=== PATIENT | male | born 1965 | race American Indian/Alaskan Native ===

== ENCOUNTER 2016-08-21 15:17 | Emergency (ER) | payer BC ==
[2016-08-21 15:40] VITALS: BMI 41.3
--- NOTE | 2016-08-21 15:59 | ED PDOC ---
Arrival/HPI - General Chief Complaint: Male Genitourinary Time Seen by Provider: 08/21/16 15:40 Historian: Patient - History of Present Illness Narrative History of Present Illness (Text): 08/21/16 15:57 50 y/o male, pmh including htn/hyperlipidemia/gout, nkda, c/o decrease urinary stream with sensation of unable to empty the bladderx 1 day. Pt. stated that he woke up this morning with decrease urinary stream and been dripping, no pain , no flank pain, no abdominal or pelvic pain, feels unable to empty the bladder completely, no fever or chills, no testicular pain, no hematuria, no night sweat , no other medical or psychological complaints. Past Medical History - Provider Review Nursing Documentation Reviewed: Yes - Infectious Disease Hx of Infectious Diseases: None - Cardiac Hx Cardiac Disorders: Yes Hx Hypertension: Yes - Pulmonary Hx Respiratory Disorders: No - Neurological Hx Neurological Disorder: No - HEENT Hx HEENT Disorder: No - Renal Hx Renal Disorder: Yes Hx Kidney Stones: Yes - Endocrine/Metabolic Hx Endocrine Disorders: Yes Other/Comment: Prediabetic. - Hematological/Oncological Hx Blood Disorders: No - Integumentary Hx Dermatological Disorder: No - Musculoskeletal/Rheumatological Hx Musculoskeletal Disorders: Yes Hx Gout: Yes - Gastrointestinal Hx Gastrointestinal Disorders: No - Genitourinary/Gynecological Hx Genitourinary Disorders: No - Psychiatric Hx Psychophysiologic Disorder: No Hx Substance Use: No - Anesthesia Hx Anesthesia: Yes Hx Anesthesia Reactions: No Family/Social History - Physician Review Nursing Documentation Reviewed: Yes Family/Social History: Unknown Family HX Smoking Status: Current Some Days Smoker Hx Alcohol Use: Yes Frequency of alcohol use: Socially Hx Substance Use: No Allergies/Home Meds Allergies/Adverse Reactions: Allergies No Known Allergies Allergy (Verified 08/21/16 15:40) Home Medications: Home Meds Medication Instructions Recorded Confirmed Febuxostat [Uloric] 80 mg PO DAILY 08/21/16 08/21/16 Valsartan [Diovan] 40 mg PO DAILY 08/21/16 08/21/16 Review of Systems - Review of Systems Constitutional: absent: Fatigue, Fevers Eyes: absent: Vision Changes ENT: absent: Hearing Changes Respiratory: absent: SOB, Cough Cardiovascular: absent: Chest Pain Gastrointestinal: absent: Abdominal Pain, Nausea, Vomiting Genitourinary Male: Frequency. absent: Dysuria, Hematuria, Urinary Output Changes Musculoskeletal: absent: Arthralgias, Back Pain, Myalgias Psychiatric: absent: Anxiety, Depression, Suicidal Ideation Physical Exam Vital Signs Reviewed: Yes Vital Signs Temp Pulse Resp BP Pulse Ox 08/21/16 15:44 98.3 F 80 19 142/89 96 Temperature: Afebrile Blood Pressure: Normal Pulse: Regular Respiratory Rate: Normal Appearance: Positive for: Well-Appearing, Non-Toxic, Comfortable Pain Distress: None Mental Status: Positive for: Alert and Oriented X 3 - Systems Exam Head: Present: Atraumatic, Normocephalic Pupils: Present: PERRL Extroacular Muscles: Present: EOMI Conjunctiva: Present: Normal Mouth: Present: Moist Mucous Membranes Neck: Present: Normal Range of Motion Respiratory/Chest: Present: Clear to Auscultation, Good Air Exchange. No: Respiratory Distress, Accessory Muscle Use Cardiovascular: Present: Regular Rate and Rhythm, Normal S1, S2. No: Murmurs Abdomen: Present: Distention (mild suprapubic distension), Normal Bowel Sounds. No: Tenderness, Peritoneal Signs Genitourinary Male: Present: Normal External Genitalia, Circumcised Penis. No: Lesions, Penile Discharge, Testicle Tenderness, Penile Swelling, Masses, Erythema, Hernias, Testicle Swelling Back: Present: Normal Inspection Upper Extremity: Present: Normal Inspection. No: Cyanosis, Edema Lower Extremity: Present: Normal Inspection. No: Edema Neurological: Present: GCS=15, Speech Normal, Motor Func Grossly Intact, Gait Normal, Memory Normal Skin: Present: Warm, Dry, Normal Color. No: Rashes Psychiatric: Present: Alert, Oriented x 3, Normal Insight, Normal Concentration Medical Decision Making ED Course and Treatment: 08/21/16 15:56 Differential: Renal injury vs. Cystitis vs. Urinary retention vs. BPH -labs/ua -bladder scanner -observe and reassess 08/21/16 17:37 -Bladder scanner show: 300cc avoid his voided, cabrera catheter ordered, flomax 0.4mg po ordered. -Labs show no acute findings, creatine within normal limit -UA show mild hematuria, no UTI -Cabrera catheter drained out approx. 500cc with distension suprapubic resolved, cabrera inserted with mild obstruction near the prostate region -Pt. feeling much better. -Pt. stated that he has urologist tomorrow to follow up with him. Hematuria can be result from the renal stone but the patient is asymptomatic. 08/21/16 18:24 -Pt. refused cabrera cather which I recommend to remain to keep it in, catheter removed, pt. able to urinate in the ER after the cabrera removed. -Discharge home withflomax, cabrera catheter, follow up with your own pmd and urologist tomorrow, return to the ER for any new or worsening signs or symptoms. - Lab Interpretations Lab Results: 08/21/16 16:45 08/21/16 16:45 Lab Results 08/21/16 16:45: Sodium 142, Potassium 3.8, Chloride 104, Carbon Dioxide 29, Anion Gap 13, BUN 16, Creatinine 1.0, Est GFR ( Amer) > 60, Est GFR (Non- Af Amer) > 60, Random Glucose 131 H, Calcium 9.5, Total Bilirubin 0.5, AST 27, ALT 33, Alkaline Phosphatase 62, Total Protein 7.5, Albumin 4.1, Globulin 3.4, Albumin/Globulin Ratio 1.2 08/21/16 16:45: WBC 6.0, RBC 5.01, Hgb 15.0, Hct 43.1, MCV 86.0, MCH 29.9, MCHC 34.8, RDW 12.9, Plt Count 192, MPV 10.3, Gran % 66.7, Lymph % (Auto) 24.3, [place] % (Auto) 7.4 H, Eos % (Auto) 1.3 L, Baso % (Auto) 0.3, Gran # 3.97, Lymph # 1.5 , [place] # 0.4, Eos # 0.1, Baso # 0.02 08/21/16 16:15: Urine Color Yellow, Urine Appearance Sl cloudy, Urine pH 6.0, Ur Specific [place] >= 1.030, Urine Protein Trace H, Urine Glucose (UA) Negative , Urine Ketones Negative, Urine Blood Moderate H, Urine Nitrate Negative, Urine Bilirubin Negative, Urine Urobilinogen 0.2, Ur Leukocyte Esterase Negative, Urine RBC 5 - 10, Urine WBC 0 - 2, Ur Epithelial Cells 0 - 2 Interpretation: Abnormal lab values (mild hematuria) - Medication Orders Current Medication Orders: Discontinued Medications Nitrofurantoin Macrocrystals (Macrobid) 100 mg PO STAT STA Stop: 08/21/16 17:38 Tamsulosin HCl (Flomax) 0.4 mg PO STAT STA Stop: 08/21/16 16:29 Last Admin: 08/21/16 17:03 Dose: 0.4 mg - PA / GUIDANCE SECRETARY / Resident Statement / has reviewed & agrees with the documentation as recorded. Disposition/Present on Arrival - Present on Arrival Any Indicators Present on Arrival: No History of DVT/PE: No History of Uncontrolled Diabetes: No Urinary Catheter: No History of Decub. Ulcer: No History Surgical Site Infection Following: None - Disposition Have Diagnosis and Disposition been Completed?: Yes Diagnosis: Acute urinary retention, Hematuria, Non-compliance with treatment Disposition: HOME/ ROUTINE Disposition Time: 17:39 Patient Plan: Discharge Patient Problems: Current Active Problems Problem Status Onset Acute urinary retention Acute Hematuria Acute Condition: IMPROVED Additional Instructions: -Discharge home with flomax, follow up with your own pmd and urologist tomorrow , return to the ER for any new or worsening signs or symptoms. Prescriptions: Tamsulosin [Flomax] 0.4 mg PO DAILY #7 cap Referrals: Dick Singletary MD, PhD [Primary Care Provider] - Follow up with primary Benjamin Ward MD [Staff Provider] - Follow up with primary Forms: WORK NOTE, [employer] (Citizen Of [place])
[2016-08-21 16:39] LABS: URINE BILIRUBIN NEGATIVE (NEGATIVE); URINE BLOOD MODERATE (NEGATIVE); URINE GLUCOSE (UA) NEGATIVE (NEGATIVE); URINE KETONE NEGATIVE (NEGATIVE); URINE LEUKOCYTE ESTERASE NEGATIVE Leu/uL (NEGATIVE); URINE PROTEIN TRACE mg/dL (<30 mg/dL); URINE UROBILINOGEN 0.2 E.U./dL (<1 E.U./dL)
[2016-08-21 16:48] LABS: URINE APPEARANCE SL CLOUDY (CLEAR); URINE COLOR YELLOW (YELLOW)
[2016-08-21 17:00] LABS: ADD MANUAL DIFF? NO
[2016-08-21 17:03] LABS: URINE EPITHELIAL CELLS 0 - 2 /hpf (0-5); URINE WBC 0 - 2 /hpf (0-6)
[2016-08-21 17:15] LABS: ALB/GLOB RATIO 1.2 (1.1-1.8); ALKALINE PHOSPHATASE 62 U/L (38-133); ALT/SGPT 33 U/L (7-56); AST/SGOT 27 U/L (15-59); BILIRUBIN,TOTAL 0.5 mg/dL (0.2-1.3); BLOOD UREA NITROGEN 16 mg/dL (7-21); CALCIUM 9.5 mg/dL (8.4-10.5); CARBON DIOXIDE 29 mmol/L (21-33); CHLORIDE 104 mmol/L (98-107); GFR AFRICAN-AMERICAN > 60; GLUCOSE,RANDOM 131 mg/dL (70-110); POTASSIUM 3.8 mmol/L (3.6-5.0); SODIUM 142 mmol/L (132-148); TOTAL PROTEIN 7.5 g/dL (5.8-8.3)
[2016-08-21 17:18] LABS: BASO # 0.02 K/mm3 (0.0-2.0); BASO % 0.3 % (0.0-3.0); EOS # 0.1 (0.0-0.7); EOS % 1.3 % (1.5-5.0); GRAN # 3.97 (1.4-6.5); GRAN % 66.7 % (50.0-68.0); HEMATOCRIT 43.1 % (42.0-52.0); LYMPH # 1.5 (1.2-3.4); LYMPH % 24.3 % (22.0-35.0); MEAN CORPUSCULAR HEMOGLOBIN 29.9 pg (25.0-35.0); MEAN CORPUSCULAR HGB CONC 34.8 g/dl (31.0-37.0); MEAN PLATELET VOLUME 10.3 fl (7.0-11.0); MONO # 0.4 (0.1-0.6); MONO % 7.4 % (1.0-6.0); PLATELET COUNT 192 10^3/uL (120.0-450.0); RED CELL DISTRIBUTION WIDTH 12.9 % (11.5-14.5)
[2016-08-21 18:34] VITALS: BP 131/71; PULSE 73; RESP 20; TEMP 98.4; O2SAT 97
== END 2016-08-21 18:36 | disposition home or self-care (01) ==
LOC: ED 15:17
DX: R33.9 Retention of urine, unspecified (principal); R31.9 Hematuria, unspecified; Z91.19 Patient's noncompliance with other medical treatment and regimen

== ENCOUNTER 2017-08-17 19:55 | Observation (INO) | payer BC ==
[2017-08-17] MEDS ORDERED: Sodium Chloride 0.9% 1,000 ML IV STA ×2 (20:16→23:27)
--- NOTE | 2017-08-17 21:08 | ED PDOC ---
Arrival/HPI - General Chief Complaint: Back Pain Time Seen by Provider: 08/17/17 20:01 Historian: Patient - History of Present Illness Narrative History of Present Illness (Text): 08/17/17 21:06 51 year old make whose past medical history includes hypertension and renal colic, presents to the emergency department complaining of intermittent right flank discomfort for the past 2 days. Patient states the discomfort radiates to the right groin. Patient denies any fever, chills, chest pain, shortness of breath, nausea, vomiting, diarrhea, urinary symptoms, back pain, neck pain, headache, dizziness, or any other complaints. Time/Duration: Other (2 days) Symptom Onset: Sudden Symptom Course: Intermittent Activities at Onset: Light Context: Home Past Medical History - Provider Review Nursing Documentation Reviewed: Yes - Travel History Have you recently traveled outside [place] w/in the past 3 mons?: No - Infectious Disease Hx of Infectious Diseases: None - Cardiac Hx Hypertension: Yes - Pulmonary Hx Respiratory Disorders: No - Neurological Hx Neurological Disorder: No - HEENT Hx HEENT Disorder: No - Renal Hx Renal Disorder: Yes Hx Kidney Stones: Yes - Endocrine/Metabolic Hx Endocrine Disorders: Yes Other/Comment: Prediabetic. - Hematological/Oncological Hx Blood Disorders: No - Integumentary Hx Dermatological Disorder: No - Musculoskeletal/Rheumatological Hx Musculoskeletal Disorders: Yes Hx Falls: No Hx Gout: Yes - Gastrointestinal Hx Gastrointestinal Disorders: No - Genitourinary/Gynecological Hx Genitourinary Disorders: No - Psychiatric Hx Psychophysiologic Disorder: No Hx Substance Use: No - Anesthesia Hx Anesthesia: Yes Hx Anesthesia Reactions: No Family/Social History - Physician Review Nursing Documentation Reviewed: Yes Family/Social History: No Known Family HX, Hypertension Smoking Status: cigars Hx Alcohol Use: Yes Frequency of alcohol use: Socially Hx Substance Use: No Allergies/Home Meds Allergies/Adverse Reactions: Allergies No Known Allergies Allergy (Verified 08/28/16 07:22) Home Medications: Home Meds Medication Instructions Recorded Confirmed Febuxostat [Uloric] 80 mg PO DAILY 08/21/16 08/28/16 Valsartan [Diovan] 40 mg PO DAILY 08/21/16 08/28/16 Review of Systems - Physician Review All systems were reviewed & negative as marked: Yes - Review of Systems Constitutional: absent: Fevers, Other (Chills) Respiratory: absent: SOB Cardiovascular: absent: Chest Pain Gastrointestinal: Abdominal Pain (right flank pain radiating to the right groin) . absent: Diarrhea, Nausea, Vomiting Genitourinary Male: absent: Dysuria, Frequency, Hematuria Musculoskeletal: absent: Back Pain, Neck Pain Physical Exam Vital Signs Reviewed: Yes Vital Signs Pulse Resp BP Pulse Ox 08/17/17 20:49 95 H 18 158/93 H 96 Blood Pressure: Hypertensive Pulse: Regular Respiratory Rate: Normal Appearance: Positive for: Well-Appearing, Non-Toxic, Comfortable Pain Distress: None Mental Status: Positive for: Alert and Oriented X 3 - Systems Exam Head: Present: Atraumatic, Normocephalic Pupils: Present: PERRL Extroacular Muscles: Present: EOMI Conjunctiva: Present: Normal Mouth: Present: Moist Mucous Membranes Neck: Present: Normal Range of Motion Respiratory/Chest: Present: Clear to Auscultation, Good Air Exchange. No: Respiratory Distress, Accessory Muscle Use Cardiovascular: Present: Regular Rate and Rhythm, Normal S1, S2. No: Murmurs Abdomen: No: Tenderness, Distention, Peritoneal Signs Back: Present: Normal Inspection. No: CVA Tenderness Upper Extremity: Present: Normal Inspection. No: Cyanosis, Edema Lower Extremity: Present: Normal Inspection. No: Edema Neurological: Present: GCS=15, CN II-XII Intact, Speech Normal Skin: Present: Warm, Dry, Normal Color. No: Rashes Psychiatric: Present: Alert, Oriented x 3, Normal Insight, Normal Concentration Medical Decision Making ED Course and Treatment: 08/17/17 21:06 Impression: 51 year old male presents complaining of intermittent right flank discomfort radiating to the right groin for the past 2 days. Plan: -- CT Abd & Pelvis w/o IV Contrast -- Labs -- IV Fluids, Toradol -- Urinalysis w/ micro -- Reassess and disposition Progress Notes: EXAM: CT Abdomen and Pelvis Without Intravenous Contrast Dictated and Authenticated by: Pebbles Schaefer MD 08/17/2017 10:28 PM IMPRESSION: 3 mm obstructing stone, right ureterovesical junction; tiny nonobstructing left renal stones Additional nonemergent findings as described above. 08/17/17 23:[address] Ward who is aware and agrees with the plan. Accepts patient into his service. Patient will be admitted to [facility]. - Lab Interpretations Lab Results: 08/17/17 21:10 08/17/17 21:10 Lab Results 08/17/17 21:35: Urine Color Yellow, Urine Appearance Clear, Urine pH 6.0, Ur Specific [place] 1.020, Urine Protein Negative, Urine Glucose (UA) Negative, Urine Ketones Negative, Urine Blood Moderate H, Urine Nitrate Negative, Urine Bilirubin Negative, Urine Urobilinogen 0.2, Ur Leukocyte Esterase Negative, Urine RBC 20 - 25, Urine WBC 2 - 5, Ur Epithelial Cells 6 - 8 08/17/17 21:10: WBC 9.4 D, RBC 5.32, Hgb 16.0, Hct 45.5, MCV 85.5, MCH 30.1, MCHC 35.2, RDW 12.5, Plt Count 179, MPV 10.4 08/17/17 21:10: Sodium 141, Potassium 3.5 L, Chloride 100, Carbon Dioxide 28, Anion Gap 16, BUN 15, Creatinine 1.3, Est GFR ( Amer) > 60, Est GFR (Non- Af Amer) 59, Random Glucose 122 H, Calcium 9.5, Total Bilirubin 0.3, AST 37, ALT 37, Alkaline Phosphatase 57, Total Protein 7.7, Albumin 4.3, Globulin 3.4, Albumin/Globulin Ratio 1.3 I have reviewed the lab results: Yes - RAD Interpretation Radiology Orders: 08/17/17 20:17 ABD & PELVIS W/O PO OR IV CONT [CT] Stat - Medication Orders Current Medication Orders: Discontinued Medications Sodium Chloride (Sodium Chloride 0.9%) 1,000 mls @ 999 mls/hr IV .Q1H1M STA Stop: 08/17/17 21:16 Last Admin: 08/17/17 21:14 Dose: 999 mls/hr eMAR Start Stop Document 08/17/17 21:14 AD (Rec: 08/17/17 21:14 AD [id number]) Intravenous Solution Start Date 08/17/17 Start Time 21:14 Ketorolac Tromethamine (Toradol) 30 mg IVP ONCE ONE Stop: 08/17/17 20:17 Last Admin: 08/17/17 21:14 Dose: 30 mg MAR Pain Assessment Document 08/17/17 21:14 AD (Rec: 08/17/17 21:14 AD [id number]) Pain Reassessment Is this a pain reassessment? No IVP Administration Document 08/17/17 21:14 AD (Rec: 08/17/17 21:14 AD [id number]) Charges for Administration # of IVP Administrations 1 - Scribe Statement The provider has reviewed the documentation as recorded by the Deannaibe Rose Beck Provider Scribe Attestation: All medical record entries made by the Scribe were at my direction and personally dictated by me. I have reviewed the chart and agree that the record accurately reflects my personal performance of the history, physical exam, medical decision making, and the department course for this patient. I have also personally directed, reviewed, and agree with the discharge instructions and disposition. Disposition/Present on Arrival - Present on Arrival Any Indicators Present on Arrival: No History of DVT/PE: No History of Uncontrolled Diabetes: No Urinary Catheter: No History of Decub. Ulcer: No History Surgical Site Infection Following: None - Disposition Have Diagnosis and Disposition been Completed?: Yes Diagnosis: Renal colic Disposition: HOSPITALIZED Disposition Time: 23:26 Patient Plan: Observation Patient Problems: Current Active Problems Problem Status Onset Renal colic Acute Condition: STABLE Referrals: Enovexsol Price, [Primary Care Provider] - Follow up with primary Forms: [employer] (Telugu)
[2017-08-17 21:30] LABS: MEAN CELL VOLUME 85.5 fl (80.0-105.0); MEAN CORPUSCULAR HEMOGLOBIN 30.1 pg (25.0-35.0); MEAN CORPUSCULAR HGB CONC 35.2 g/dl (31.0-37.0); MEAN PLATELET VOLUME 10.4 fl (7.0-11.0); RBC 5.32 10^6/uL (3.5-6.1); RED CELL DISTRIBUTION WIDTH 12.5 % (11.5-14.5); WHITE BLOOD COUNT 9.4 10^3/ul (4.5-11.0)
[2017-08-17 21:42] LABS: URINE BILIRUBIN NEGATIVE (NEGATIVE); URINE BLOOD MODERATE (NEGATIVE); URINE COLOR YELLOW (YELLOW); URINE GLUCOSE (UA) NEGATIVE (NEGATIVE); URINE LEUKOCYTE ESTERASE NEGATIVE Leu/uL (NEGATIVE); URINE PROTEIN NEGATIVE mg/dL (<30 mg/dL); URINE UROBILINOGEN 0.2 E.U./dL (<1 E.U./dL)
[2017-08-17 21:42] LABS: ALB/GLOB RATIO 1.3 (1.1-1.8); ALBUMIN 4.3 g/dL (3.0-4.8); ALT/SGPT 37 U/L (7-56); AST/SGOT 37 U/L (17-59); BLOOD UREA NITROGEN 15 mg/dL (7-21); CALCIUM 9.5 mg/dL (8.4-10.5); GFR AFRICAN-AMERICAN > 60; GFR NON-AFRICAN AMERICAN 59
[2017-08-17 21:43] LABS: URINE APPEARANCE CLEAR (CLEAR)
[2017-08-17 21:47] LABS: URINE RBC 20 - 25 /hpf (0-2)
--- NOTE | 2017-08-17 22:28 | CT ---
EXAM: CT Abdomen and Pelvis Without Intravenous Contrast EXAM DATE/TIME: 08/17/2017 8:17 PM CLINICAL HISTORY: 51 years old, male; Pain; Abdominal pain; Flank; Right; Additional info: Right flank pain TECHNIQUE: Axial computed tomography images of the abdomen and pelvis without intravenous contrast. All CT scans at this facility use one or more dose reduction techniques, viz.: automated exposure control; ma/kV adjustment per patient size (including targeted exams where dose is matched to indication; i.e. head); or iterative reconstruction technique. Coronal and sagittal reformatted images were created and reviewed. COMPARISON: There are no prior studies for comparison. FINDINGS: Lower thorax: Heart size is normal. There are coronary artery calcifications. There is a 4.6 mm nodule in the right costophrenic angle. There is a small granuloma at the left base. ABDOMEN: Liver: There is a cyst in the liver. Gallbladder and bile ducts: unremarkable Pancreas: unremarkable Spleen: unremarkable Adrenals: unremarkable Kidneys and ureters: There are tiny nonobstructing left renal stones. There are no left ureteral stones. There is no dilatation. There are no right ureteral stones.There is obstructive uropathy on the right. There is a 3 mm stone at the right ureterovesical junction Stomach and bowel: Stomach is partially distended with an air-fluid level. Rotation is normal. There is no small bowel obstruction. There is fecalization of the terminal ileum. Appendix is unremarkable. Colon is incompletely distended which limits evaluation. There is minimal diverticulosis. PELVIS: Appendix: See stomach and bowel Bladder: Bladder is almost empty. Reproductive: Seminal vesicles and prostate are unremarkable. ABDOMEN and PELVIS: Intraperitoneal space: There is no free air or free fluid. Bones/joints: There are degenerative changes in the osseus structures. Soft tissues: There is a small fat containing umbilical hernia. Vasculature: There are vascular calcifications. There are multiple phleboliths. Lymph nodes: There is no pathologic adenopathy. IMPRESSION: 3 mm obstructing stone, right ureterovesical junction; tiny nonobstructing left renal stones Additional nonemergent findings as described above.
[2017-08-17] MEDS ORDERED: Oxycodone/Acetaminophen 5/325 mg Tab PO PRN (23:27)
[2017-08-18 02:40] VITALS: BMI 41.7
--- NOTE | 2017-08-18 10:42 | RAD ---
HISTORY: stones COMPARISON: No prior. FINDINGS: BOWEL: Normal. No obstruction. No free air. BONES: Normal. OTHER FINDINGS: None. IMPRESSION: No visible stones
[2017-08-18] MEDS ORDERED: Potassium Chloride 10 MEQ in Dextrose 5%/0.45% NS 1,000 ML IV SCH (15:00)
--- NOTE | 2017-08-18 16:54 | CARD ---
APPROVED REPORT EKG Measurement Heart [id number] ME [id number] <Conclusion> Normal sinus rhythm Left ventricular hypertrophy with QRS widening Nonspecific T wave abnormality Abnormal ECG
[2017-08-18] MEDS ORDERED: Propofol 10 mg/ml Inj (20 ML) ONE (17:32)
[2017-08-18] MEDS ORDERED: Midazolam 2 MG/2 ML VIAL ONE (17:32)
[2017-08-18] MEDS ORDERED: cefTRIAXone (Rocephin) 1 gm Inj ONE (17:33)
[2017-08-18] MEDS ORDERED: Iohexol 240 (50 ml) ONE (17:33)
[2017-08-18] MEDS ORDERED: HYDROmorphone 1 mg/ml ISec IVP PRN (18:31)
[2017-08-18 18:36] VITALS: RESP 19; TEMP 97.6
[2017-08-18] MEDS ORDERED: Labetalol 5 mg/ml Inj 20ML IV ONE ×2 (18:37→18:39)
[2017-08-18] MEDS ORDERED: Labetalol 5 mg/ml Inj 20ML ONE (18:39)
[2017-08-18] MEDS ORDERED: Lactated Ringer's 1,000 ML IV SCH (18:45)
[2017-08-18] MEDS ORDERED: Gentamicin 80 mg/2mL Inj. ONE (18:56)
[2017-08-18 19:04] VITALS: PULSE 90; O2SAT 96
[2017-08-18 21:43] VITALS: BP 145/65
--- NOTE | 2017-08-19 00:48 | HP ---
UROLOGY ADMISSION HISTORY AND PHYSICAL REASON FOR ADMISSION: Treatment for severe renal colic. HISTORY OF PRESENT ILLNESS: Mr. Kingston Vivar is a very pleasant gentleman who I know quite well and I have seen him multiple times. He is almost 52 years old. He comes in with severe right renal colic. He actually called me on his way to hospital. We discussed options. He actually came to the hospital, but we were not in the office at that time and we discussed options and recommended that he return to the office. Then the pain got so severe, he came to the emergency room and now is being admitted with severe hydronephrosis, severe renal colic from a 3-mm distal ureteral stone. See the plans below. PAST MEDICAL AND SURGICAL HISTORY: As listed on the chart. Underlying hypertension. No history of NE or CVA. SOCIAL HISTORY: Unremarkable. REVIEW OF SYSTEMS: As above. No weight loss, chest pain, or shortness of breath. PHYSICAL EXAMINATION: GENERAL: Well-nourished male, in no apparent distress, currently resting comfortably on the gurney. VITAL SIGNS: Within normal limits. LUNGS: Clear. HEART: Normal S1 and S2. ABDOMEN: Soft and nontender. GENITOURINARY: Normal phallus without discharge. No testicular masses. DIAGNOSTIC DATA: CT scan notes a 3-mm distal ureteral stone and hydronephrosis. LABORATORY DATA: Labs are noted in the chart. DIAGNOSES: Severe renal colic that persisted with abdominal pain, nausea, vomiting. Currently, no fever. We discussed the plan as well as discussed the options including aspiration. The date of admission on this is 08/17. I will observe the patient and then see further plans. If it is not resolved, we may consider doing cystoscopy. I explained to the patient in detail the 3-mm stones pass. But he is very worried to have this severe pain that he had again. So the plan will be observation, repeat KUB and then further plans to follow. PLAN: 1. IV hydration. 2. Analgesics. 3. Strain the urine. 4. Further plans to follow. ADDENDUM: See the operative report. After observing the patient for almost 24 hour, the patient is not improving. He is having intermittent pain. As soon as the pain medicine wears off, he feels pain again and discomfort. When the pain medicine is on board, he feels good. We will bring the patient to the OR. Tommy Ward MD
--- NOTE | 2017-08-21 12:37 | RAD ---
PROCEDURE: Fluoroscopy up to 1 hour HISTORY: BASKET STONE REMOVAL (RIGHT) COMPARISON: TECHNIQUE: Fluoroscopy was provided in the operating room. 5.8 seconds of fluoro time. Cumulative dose 10.25 mGy. Six images were submitted FINDINGS: Study shows wires extending up the right ureter into the right collecting system IMPRESSION: As above
--- NOTE | 2017-08-22 05:57 | PN ---
DATE: 08/22/2017 IMMEDIATE POSTOPERATIVE NOTE PREOPERATIVE DIAGNOSES: Urolithiasis, hematuria, hydronephrosis. POSTOPERATIVE DIAGNOSES: Urolithiasis, hematuria, hydronephrosis. PROCEDURE: Cystoscopy, ureteroscopy, stone basketing, ureteral dilation. The patient is in the recovery room in stable condition. DIAGNOSIS: Urolithiasis. PLAN: Antibiotics, analgesics, and then further plan is to follow with discharge home plan. Tommy Ward MD
--- NOTE | 2017-08-22 15:15 | HP ---
UROLOGY EMERGENCY ADMISSION HISTORY AND PHYSICAL REASON FOR EMERGENCY ADMISSION: Treatment of kidney for severe renal colic. HISTORY OF PRESENT ILLNESS: A very pleasant gentleman who presents with a small distal ureteral stone with severe renal colic who is now being admitted as an emergency for further evaluation and pain management and IV fluid. PAST MEDICAL AND SURGICAL HISTORY: As listed on the chart and from the ER notes. No history of an AK or CVA. SOCIAL HISTORY: Essentially unremarkable. PHYSICAL EXAMINATION: GENERAL: Well-nourished male, in no apparent distress, currently resting comfortably. ABDOMEN: Relatively soft. No CVA tenderness is appreciated. GENITOURINARY: Normal phallus without discharge. No testicular masses. LABORATORY DATA: See chart. CT scan, see chart. DIAGNOSES: 1. Hematuria. 2. Severe renal colic. 3. Distal ureteral stone. ASSESSMENT AND PLAN: Currently, we will watch the patient for a day and we will discuss the option. The patient does not want to go into the weekend with the stone and pain. We will discuss further options and plans. We will follow. For now, the plan is as follows; 1. IV fluids. 2. Analgesics. 3. Straining the urine and then further followup. Tommy Ward MD
--- NOTE | 2017-08-23 10:13 | OP ---
PROCEDURE DATE: 08/18/2017 See the history and physical from 08/17/2017. PREOPERATIVE DIAGNOSES: Urolithiasis, hematuria, hydronephrosis, severe flank pain. Currently, actually has much less pain. POSTOPERATIVE DIAGNOSES: Urolithiasis, hematuria, hydronephrosis, severe flank pain. The patient has a distal ureteral stone. PROCEDURES: Cystoscopy, ureteral dilatation, ureteroscopy, and successful stone basketing, ureteral stone intact. There were no complications. No stents inserted. SURGEON: Tommy Ward MD. ESTIMATED BLOOD LOSS: Less than 10 mL. FINDINGS: 1. Normal anterior urethra without strictures. 2. Verumontanum is minimally visually occlusive. 3. Bladder mucosa is within normal limits. 4. The ureteral orifice is within normal limits. 5. We found the distal ureteral stone that we were able to basket intact. The above mentioned procedure was done with fluoroscopic imaging for assistance and also the entire procedure was done with a camera. Pictures were taken of the stone and the basket and the recruiting assistant is able to help me to have the stone out. INDICATIONS: See history and physical for further details and see progress note. We did a followup KUB, which is read as negative, but looking at the film, it looked like there might be a stone plus the patient reports that during the day when he is not on pain medication, he gets recurrent pain. Again, speaking to the nurses, their evaluation was that the patient was pain free, but evaluating in frequent occasions, in reality, he continues to have pain requiring analgesic use. Note, that we have done the cystoscopy. We discussed options with the patient. The patient did not want to go into the weekend with pain on and off and he did not want to be discharged without having resolved the issue on the stone. He said that he has been straining the urine and after straining urine, he still experienced he has not passed the stone. Therefore, we have discussed all the options with the patient, is here now for the above procedure. We do want to make a note, after having done the procedure, cleaning the stone and having said the stone is seen on the x-ray and we removed the stone intact in a successful way. I did explain to the patient in great detail, this is a small distal ureteral stone, 3 mm and may also be able to pass; however, the patient reports that he has been having pain back and forth and yesterday's pain was so severe, we have discussed all the options for the above procedure. DESCRIPTION OF PROCEDURE: After obtaining informed consent, the patient was placed on the table. Routine monitors were placed. Time-out was called to confirm the patient, positioning, etc. Antibiotic prophylaxis had been used. We introduced the cystoscope via urethra. . Again, there has been an area in the distal ureter that may represent itself. It was difficult to evaluate, there was a lot of gap in the bony pelvis. We identified the ureteral orifice and we got the wire up to the kidney. We now going with a ureteroscope adjacent to that wire and then to dilate the distal ureter, we put in a second wire. Actually, it takes a little manipulation, once we get the second wire up. We were able to dilate the distal ureter using the graduated portion of the ureteroscope. We used the short rigid ureteroscope. Now, we identified the stone. We took pictures of it. Actually, first we put the basket in, we grabbed the stone, it is actually . Once we grabbed the stone, it was able to be removed intact. The entire procedure was done with the camera. We were careful that the ureteral stone at the basket is only of the stone. We removed it intact. At this point, we emptied the bladder. The patient tolerated the procedure without complications. We discussed the idea of stenting and removal etc., but we did not feel the need for atraumatic procedure. Overall, the patient tolerated the procedure without complications. Tommy Ward MD
== END 2017-08-18 22:38 | disposition home or self-care (01) ==
LOC: ED 19:55 → ERH 23:26 → 5RNO 08-18 02:02
PROVIDERS: ADMIT Urology; ATTEND Urology
DX: N13.2 Hydronephrosis with renal and ureteral calculous obstruction (principal); I10 Essential (primary) hypertension
CPT/HCPCS: 52344; 52352; 74022; 74176; 80053; 81001; 85027; 88300; 93005; 96374; 96375; 99283; C1758; C1769; G0378; J0696; J1580; J1885; J2250; J2405; J2704; J3010; J7040; J7042; J7120; Q9966